=== PATIENT | female | born 1970 | race African-American/Black ===

== ENCOUNTER → 2017-04-01 | Outpatient (CLI) | payer BC ==
--- NOTE | 2017-04-01 15:53 | RAD ---
DATE: 04/01/2017 EXAM: DIGITAL SCREEN BILAT W/CAD HISTORY: Screening study. COMPARISON: 03/04/2016 This study was interpreted with the benefit of Computerized Aided Detection (CAD). The breast parenchyma is heterogeneously dense, which could reduce sensitivity of mammography. Breast parenchyma level C. FINDINGS: Digital MLO and CC mammograms of both breasts were obtained. Comparison study is dated 03/04/2016. The breast parenchyma is heterogeneously dense which can obscure a lesion on mammography. No spiculated mass is seen. No malignant appearing calcification or area of architectural distortion is noted. A 2 cm benign-appearing nodule is seen within the left breast, unchanged. Since the previous examination there has been no significant interval change. IMPRESSION: BI-RADS Category 2, benign finding. There is no mammographic evidence malignancy. Routine yearly screening mammography is recommended for follow-up. BI-RADS CATEGORY: 2 BENIGN FINDING(S) RECOMMENDED FOLLOW-UP: 12M 12 MONTH FOLLOW-UP PQRS compliance statement: Patient information was entered into a reminder system with a target due date 04/01/2018 for the next mammogram. Mammography is a sensitive method for finding small breast cancers, but it does not detect them all and is not a substitute for careful clinical examination. A negative mammogram does not negate a clinically suspicious finding and should not result in delay in biopsying a clinically suspicious abnormality. "Our facility is accredited by the [employer] Mammography Program."
== END | disposition home or self-care (01) ==
LOC: MAMMO 12:52
PROVIDERS: ATTEND Internal Medicine
DX: Z12.31 Encounter for screening mammogram for malignant neoplasm of breast (principal)
CPT/HCPCS: G0202; 77067

== ENCOUNTER → 2018-04-07 | Outpatient (CLI) | payer BC ==
--- NOTE | 2018-04-07 12:32 | RAD ---
DATE: 04/07/2018 EXAM: DIGITAL SCREEN BILAT W/CAD HISTORY: Routine screening COMPARISON: 04/01/2017, 02/15/2014 This study was interpreted with the benefit of Computerized Aided Detection (CAD). Breast Density: SCATTERED The breast parenchyma shows scattered fibroglandular densities. Breast parenchyma level B. FINDINGS: The 3.5 cm slightly lobulated nodule is again noted anteromedially in the left breast. This is unchanged since multiple previous studies. There is less prominent nodularity in other portions of both breasts which is also unchanged. No new or enlarging breast densities are seen. No suspicious microcalcifications are evident. IMPRESSION: Stable mammograms without evidence of malignancy. BI-RADS CATEGORY: 2 BENIGN FINDING(S) RECOMMENDED FOLLOW-UP: 12M 12 MONTH FOLLOW-UP PQRS compliance statement: Patient information was entered into a reminder system with a target due date for the next mammogram. Mammography is a sensitive method for finding small breast cancers, but it does not detect them all and is not a substitute for careful clinical examination. A negative mammogram does not negate a clinically suspicious finding and should not result in delay in biopsying a clinically suspicious abnormality. "Our facility is accredited by the [employer] Mammography Program."
== END | disposition home or self-care (01) ==
LOC: MAMMO 11:41
PROVIDERS: ATTEND Internal Medicine
DX: Z12.31 Encounter for screening mammogram for malignant neoplasm of breast (principal)
CPT/HCPCS: 77067

== ENCOUNTER → 2018-04-15 | Outpatient (CLI) | payer BC ==
--- NOTE | 2018-04-16 11:14 | RAD ---
INDICATION: 47 years year-old female presents for sonographic evaluation of a palpable abnormality within the left breast TECHNIQUE: Targeted high resolution sonography of the region of clinical concern was performed. COMPARISON: Prior mammography dating back to 01/28/2012 FINDINGS: Sonographic evaluation of the region of palpable abnormality was performed. A 3 x 1.3 x 1.6 cm hypoechoic oval mass is seen in a parallel orientation at the 11:00 position which correlates to the density seen on prior mammogram stable to at least 01/28/2012 IMPRESSION: No sonographic evidence of malignancy. RECOMMENDATION: The patient's focal breast complaint should be further managed clinically. Continued annual screening mammography is recommended with the next mammography due 04/07/2019 BI-RADS 2: Benign
== END | disposition home or self-care (01) ==
LOC: US 12:33
PROVIDERS: ATTEND Internal Medicine
DX: R92.8 Other abnormal and inconclusive findings on diagnostic imaging of breast (principal)
CPT/HCPCS: 76641

== ENCOUNTER → 2019-04-10 | Outpatient (CLI) | payer BC ==
--- NOTE | 2019-04-10 18:04 | RAD ---
DATE: 04/10/2019 EXAM: MAMMO STEVAN SCREENING BILATERAL HISTORY: Routine screening COMPARISON: 02/15/2014, 02/23/2015, 03/04/2016, 04/01/2017, 04/07/2018 This study was interpreted with the benefit of Computerized Aided Detection (CAD). Breast Density: SCATTERED The breast parenchyma shows scattered fibroglandular densities. Breast parenchyma level B. FINDINGS: Anterior left lower inner breast mass has remained stable. Small mass involving the right lower inner breast is also stable. No suspicious calcific lesion or distortion. No suspicious new mass. Small masses are best seen on tomosynthesis imaging measuring less than 0.5 cm. There are multiple bilaterally with no suspicious characteristics. These appears stable upon correlation with prior exams. IMPRESSION: Stable BI-RADS CATEGORY: 1 NEGATIVE RECOMMENDED FOLLOW-UP: 12M 12 MONTH FOLLOW-UP PQRS compliance statement: Patient information was entered into a reminder system with a target due date for the next mammogram. Mammography is a sensitive method for finding small breast cancers, but it does not detect them all and is not a substitute for careful clinical examination. A negative mammogram does not negate a clinically suspicious finding and should not result in delay in biopsying a clinically suspicious abnormality. "Our facility is accredited by the [employer] Mammography Program."
== END | disposition home or self-care (01) ==
LOC: MAMMO 07:21
PROVIDERS: ATTEND Internal Medicine
DX: Z12.31 Encounter for screening mammogram for malignant neoplasm of breast (principal); N63.20 Unspecified lump in the left breast, unspecified quadrant; N63.10 Unspecified lump in the right breast, unspecified quadrant
CPT/HCPCS: 77063; 77067

== ENCOUNTER → 2019-06-20 | Outpatient (CLI) | payer OTHER ==
--- NOTE | 2019-06-20 10:35 | RAD ---
PQRS Compliance Statement: One or more of the following individualized dose reduction techniques were utilized for this examination: 1. Automated exposure control 2. Adjustment of the mA and/or kV according to patient size 3. Use of iterative reconstruction technique CT HEAD WITHOUT CONTRAST History: Concussion. Comparison: None. Procedure: Axial images are obtained of the head from the skull base through the vertex without IV contrast. Findings: There are bilateral centrum semiovale hypodensities that are probably encephalomalacia. There is mild generalized cerebral atrophy. There is right temporal lobe encephalomalacia. There is inferior left temporal lobe encephalomalacia. No mass-effect, midline shift, hemorrhage, extra-axial fluid collection, or obvious acute infarction is identified. Basilar cisterns are patent. Bone windows demonstrate no acute calvarial abnormality. Small posterior left frontal calvarial defect. The visualized paranasal sinuses are clear. Mastoid air cells are well aerated. IMPRESSION: 1. No acute intracranial hemorrhage. 2. 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 3. Bilateral centrum semiovale hypodensities are probably encephalomalacia. Electronically signed by: Frankie Madison MD (06/20/2019 10:32 AM) [id number]
== END ==
LOC: CT 09:34
PROVIDERS: ATTEND Internal Medicine
DX: S06.0X0A Concussion without loss of consciousness, initial encounter (principal); G93.89 Other specified disorders of brain; G31.89 Other specified degenerative diseases of nervous system; X58.XXXA Exposure to other specified factors, initial encounter; Y93.89 Activity, other specified; Y92.89 Other specified places as the place of occurrence of the external cause; Y99.0 Civilian activity done for income or pay
CPT/HCPCS: 70450

== ENCOUNTER → 2019-06-30 | Outpatient (CLI) | payer BC, OTHER ==
--- NOTE | 2019-06-30 15:20 | RAD ---
Transabdominal and transvaginal sonography of the pelvis Clinical indications: Pelvic mass. Transabdominal sonography: The uterus is anteverted in position. The longitudinal and AP and transverse dimensions of the uterus are 11.9 cm and 6.0 cm and 6.7 cm respectively. The endometrial canal is poorly visualized. Therefore, transvaginal sonography will be performed. There is a large mass of the pelvis which appears be arising from the fundus of the uterus and measures 12.5 cm in greatest dimension. Neither ovary is visualized. No free fluid is evident. Transvaginal sonography: There is a posterior uterine mass measuring 4.6 cm in greatest dimension. The endometrial canal is not well defined. Therefore, measurement of the endometrial canal cannot be completed. As a result, the posterior uterine mass may represent a fibroid or endometrial mass. Small nabothian cysts are seen. Neither ovary can be visualized. No free fluid is seen within the cul-de-sac. Small amount of free fluid is seen superior to the uterus. IMPRESSION: Large central pelvic mass extending up to the level of the umbilicus which measures 12.5 cm in size and is contiguous with the fundus of the uterus. This could represent a large serosal or pedunculated uterine fibroid but other etiologies for pelvic mass need to be considered as well including ovarian or colon. Neither ovary is visualized. There is a 4.6 cm posterior uterine mass. Endometrial canal is not visualized and therefore is distorted by this mass. As a result, this mass could be a fibroid or endometrial mass. Electronically signed by: Luis Rodriguez MD (06/30/2019 3:17 PM) [facility]
== END | disposition home or self-care (01) ==
LOC: US 14:03
PROVIDERS: ATTEND Obstetrics & Gynecology
DX: N88.8 Other specified noninflammatory disorders of cervix uteri (principal); R19.00 Intra-abdominal and pelvic swelling, mass and lump, unspecified site
CPT/HCPCS: 76830; 76856

== ENCOUNTER 2019-08-23 07:30 | Inpatient (IN) | payer BC ==
[~2019-08-23] VITALS: Ht 152.4 cm; Wt 91.0 kg
[2019-08-25] MEDS ORDERED: MULT-245 PO (14:15)
[2019-08-25] MEDS ORDERED: BIMA2.5D EACHEYE (14:16)
[2019-08-30] VITALS (10 sets, daily range): BP systolic 80–111; BP diastolic 49–74
[2019-08-30] MEDS ORDERED: MORPHINE SULFATE 2 MG/ML VIAL. IV PRN (07:00)
[2019-08-30] MEDS ORDERED: IV RINGERS,LACTATED 1000ML 1,000 ML IV SCH (07:00)
[2019-08-30] MEDS ORDERED: PROCHLORPERAZINE 10 MG/2 ML VIAL. IV PRN (07:00)
[2019-08-30] MEDS ORDERED: ONDANSETRON PF 4 MG/2 ML VIAL. IV PRN (07:00)
[2019-08-30] MEDS ORDERED: fentaNYL PF VIAL 100 MCG/2 ML VIAL IV PRN ×2 (07:00)
[2019-08-30] MEDS ORDERED: HYDROmorphone 2 MG/ML VIAL IV PRN (07:00)
[2019-08-30] MEDS ORDERED: NEOSTIGMINE METHYLSULFATE 5 MG/5 ML SYRINGE. ONE (08:25)
[2019-08-30] MEDS ORDERED: GLYCOPYRROLATE 1 MG/5 ML VIAL. ONE (08:25)
[2019-08-30] MEDS ORDERED: PROPOFOL 10 MG/ML (20ML) VIAL. IV ONE (08:25)
[2019-08-30] MEDS ORDERED: SEVOFLURANE > 120 MINUTES. IH ONE (08:25)
[2019-08-30] MEDS ORDERED: fentaNYL PF VIAL 100 MCG/2 ML VIAL ONE ×3 (08:25→13:28)
[2019-08-30] MEDS ORDERED: MIDAZOLAM HCL/PF 2 MG/2 ML VIAL. ONE (08:25)
[2019-08-30] MEDS ORDERED: ROCURONIUM 50 MG/5 ML VIAL. ONE ×2 (08:25→12:21)
[2019-08-30] MEDS ORDERED: LIDOCAINE 2% PF 5 ML VIAL. ONE (08:25)
[2019-08-30] MEDS ORDERED: KETOROLAC 30 MG/ML VIAL. ONE (08:26)
[2019-08-30] MEDS ORDERED: DEXAMETHASONE SOD PHOS 4 MG/ML VIAL ONE (08:26)
[2019-08-30] MEDS ORDERED: ONDANSETRON PF 4 MG/2 ML VIAL. ONE (08:26)
[2019-08-30] MEDS ORDERED: SIMV10TA15 PO (08:31)
[2019-08-30] MEDS ORDERED: GELATIN SPONGE SIZE 100. ONE (08:54)
[2019-08-30] MEDS ORDERED: GELATIN SPONGE SIZE 12-7MM SPONGE. ONE (08:55)
--- NOTE | 2019-08-30 09:06 | EKG ---
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
--- NOTE | 2019-08-30 09:49 | RAD ---
Chest, PA and Lateral: Technique: PA and lateral views of the chest were obtained. History: Preop. Comparison: None. Findings: The heart and pulmonary vasculature appear within normal limits. The lungs are clear. The pleural margins are clear. Impression: No acute chest process is seen. Electronically signed by: Tim Mcodnnell MD (08/30/2019 9:46 AM) [id number]
[2019-08-30] MEDS ORDERED: PHENYLEPHRINE in 0.9% NACL PF 1 MG/10 ML SYRINGE. IV ONE ×2 (10:49→12:38)
[2019-08-30 11:04] LABS: BASO % 1 % (0-3); EOS # 0.1 x10^3/uL (0.0-0.7); EOS % 2 % (0-3); HEMATOCRIT 38.7 % (36.0-47.0); HEMOGLOBIN 12.6 g/dL (12.0-15.5); LYMPH # 1.4 x10^3/uL (1.0-4.8); LYMPH % 22 % (24-48); MEAN CORPUSCULAR HEMOGLOBIN 26 pg (25-35); MEAN CORPUSCULAR HGB CONC 33 g/dL (31-37); MEAN CORPUSCULAR VOLUME 79 fL (79-100); MONO # 0.4 x10^3/uL (0.0-1.1); MONO % 7 % (0-9); NEUT # 4.6 x10^3/uL (1.8-7.7); NEUT % 69 % (31-73); PLATELET COUNT 223 x10^3/uL (140-400); RED BLOOD COUNT 4.93 x10^6/uL (3.50-5.40); RED CELL DISTRIBUTION WIDTH 16.7 % (11.5-14.5); WHITE BLOOD COUNT 6.6 x10^3/uL (4.0-11.0)
[2019-08-30 12:35] LABS: BASO % 1 % (0-3); EOS # 0.1 x10^3/uL (0.0-0.7); EOS % 1 % (0-3); HEMATOCRIT 29.5 % (36.0-47.0); HEMOGLOBIN 9.8 g/dL (12.0-15.5); LYMPH # 1.5 x10^3/uL (1.0-4.8); LYMPH % 20 % (24-48); MEAN CORPUSCULAR HEMOGLOBIN 26 pg (25-35); MEAN CORPUSCULAR HGB CONC 33 g/dL (31-37); MEAN CORPUSCULAR VOLUME 79 fL (79-100); MONO # 0.3 x10^3/uL (0.0-1.1); MONO % 4 % (0-9); NEUT # 5.5 x10^3/uL (1.8-7.7); NEUT % 75 % (31-73); PLATELET COUNT 206 x10^3/uL (140-400); RED BLOOD COUNT 3.76 x10^6/uL (3.50-5.40); RED CELL DISTRIBUTION WIDTH 16.5 % (11.5-14.5); WHITE BLOOD COUNT 7.3 x10^3/uL (4.0-11.0)
[2019-08-30] MEDS ORDERED: ePHEDrine PF IN SALINE 50 MG/10 ML SYRINGE. IV ONE (13:10)
--- NOTE | 2019-08-30 13:36 | PDOC ---
GENERAL General: 49yrs old lady admitted for Pelvic Pain and Large size Uterus with Fibroids. VITAL SIGNS Vital Signs/I&O: Vital Signs Date Time Temp Pulse Resp B/P (MAP) Pulse Ox O2 Delivery O2 Flow Rate FiO2 08/30/19 08:32 97.4 95 20 97 97.4 08/30/19 08:16 126/62 Room Air ALLERGIES Allergies: Allergies Coded Allergies Type Severity Reaction Last Updated Verified No Known Drug Allergies 08/30/19 No MEDS Medications: Current Medications Medications (Trade) Dose Ordered Sig/Gil Route PRN Reason Start Time Stop Time Status Last Admin Dose Admin Ringer's Solution 1,000 ml @ 30 mls/hr Q24H IV 08/30/19 07:00 08/30/19 18:59 08/30/19 09:11 Cefazolin Sodium/ Dextrose 50 ml @ 100 mls/hr 1X PREOP PRN IV PRIOR TO PROCEDURE 08/30/19 06:00 08/30/19 18:00 08/30/19 10:30 Gelatin (Gelfoam Size 12-7mm) 1 each STK-MED ONCE .ROUTE 08/30/19 08:55 08/30/19 08:55 DC 08/30/19 12:46 LAB Lab: Laboratory Tests Test 08/30/19 08:19 08/30/19 08:30 08/30/19 12:27 POC Urine HCG, Qualitative Hcg negative (Negative) White Blood Count 6.6 x10^3/uL (4.0-11.0) 7.3 x10^3/uL (4.0-11.0) Red Blood Count 4.93 x10^6/uL (3.50-5.40) 3.76 x10^6/uL (3.50-5.40) Hemoglobin 12.6 g/dL (12.0-15.5) 9.8 g/dL (12.0-15.5) L Hematocrit 38.7 % (36.0-47.0) 29.5 % (36.0-47.0) L Mean Corpuscular Volume 79 fL (79-100) 79 fL (79-100) Mean Corpuscular Hemoglobin 26 pg (25-35) 26 pg (25-35) Mean Corpuscular Hemoglobin Concent 33 g/dL (31-37) 33 g/dL (31-37) Red Cell Distribution Width 16.7 % (11.5-14.5) H 16.5 % (11.5-14.5) H Platelet Count 223 x10^3/uL (140-400) 206 x10^3/uL (140-400) Neutrophils (%) (Auto) 69 % (31-73) 75 % (31-73) H Lymphocytes (%) (Auto) 22 % (24-48) L 20 % (24-48) L Monocytes (%) (Auto) 7 % (0-9) 4 % (0-9) Eosinophils (%) (Auto) 2 % (0-3) 1 % (0-3) Basophils (%) (Auto) 1 % (0-3) 1 % (0-3) Neutrophils # (Auto) 4.6 x10^3/uL (1.8-7.7) 5.5 x10^3/uL (1.8-7.7) Lymphocytes # (Auto) 1.4 x10^3/uL (1.0-4.8) 1.5 x10^3/uL (1.0-4.8) Monocytes # (Auto) 0.4 x10^3/uL (0.0-1.1) 0.3 x10^3/uL (0.0-1.1) Eosinophils # (Auto) 0.1 x10^3/uL (0.0-0.7) 0.1 x10^3/uL (0.0-0.7) Basophils # (Auto) 0.0 x10^3/uL (0.0-0.2) 0.0 x10^3/uL (0.0-0.2) Laboratory Tests 08/30/19 08:30 08/30/19 12:27 ASSESSMENT & PLAN A&P Under GA Myomectomy and Abdominal Hysterectomy done. EBL 1600cc. Mutiple Myoma removed. SERGIO MIRANDA MD August 30, 2019 13:36
[2019-08-30] MEDS ORDERED: ACETAMINOPHEN 325 MG TABLET. PO PRN (13:45)
[2019-08-30] MEDS ORDERED: oxyCODONE/APAP 5/325 1 TAB TABLET PO ONE (13:45)
[2019-08-30] MEDS ORDERED: ZOLPIDEM 5 MG TABLET. PO PRN (13:45)
[2019-08-30] MEDS ORDERED: 0.9 % SOD CHL for STERILE FIELD 10 ML DISP.SYRIN. IV ONE (13:45)
[2019-08-30] MEDS ORDERED: ONDANSETRON ODT 4 MG TAB.RAPDIS. PO PRN (13:45)
[2019-08-30 13:51] LABS: RED BLOOD COUNT 2.36 x10^6/uL (3.50-5.40); RED CELL DISTRIBUTION WIDTH 16.4 % (11.5-14.5); WHITE BLOOD COUNT 7.9 x10^3/uL (4.0-11.0)
[2019-08-30 13:57] LABS: HEMATOCRIT 19.1 % (36.0-47.0); HEMOGLOBIN 6.2 g/dL (12.0-15.5)
--- NOTE | 2019-08-30 14:45 | OP ---
DATE OF SURGERY: PREOPERATIVE DIAGNOSES: Pelvic pain, large fibroid uterus. POSTOPERATIVE DIAGNOSES: Pain with multiple leiomyoma of the uterus. OPERATION PERFORMED: Myomectomy, abdominal hysterectomy. DESCRIPTION OF PROCEDURE: The patient was taken to the operating room under general anesthesia. She was placed in a dorsal supine position. Taylor catheter introduced in a bladder for continuous bladder drainage. Lower abdomen was prepped and draped in the usual manner. A midline vertical incision is made because of the large size of the uterus and fibroids. Abdomen opened in layers. Visualization of pelvic structures revealed enlarged uterus. Both the ovaries appeared normal, also the tubes. The lower abdomen, is entirely occupied by a pedunculated fibroid coming from the uterus extending as far as the upper abdominal area and this could not be delivered in one piece because of the large size of the myoma hence myomectomy was performed first to debulk the size of the tumor and then the fibroid is excised on the back side of the uterus and subjected for pathological examination. The uterus enlarged also occupied by myomas in the fundus of the uterus. The round ligament on either side is clamped, ligated, cut, and sutured with #1 chromic catgut sutures and the broad ligament on either side is clamped, ligated, cut, and sutured with #1 chromic catgut sutures. After this, the bladder flap peritoneum was dissected. Bladder was pushed way down the lower segment of the uterus and the uterine vessels on either side is clamped, ligated, cut, and sutured with 0 chromic catgut sutures. After the complete reflection of bladder flap peritoneum, a stab wound incision was made below the cervix posteriorly and the uterosacral cardinal ligaments on either side is ligated, cut, and sutured with 0 chromic catgut sutures. The incision below the cervix is extended on either side all around below the cervix. Thus, the uterus with the cervix was removed and subjected for pathological examination and the cut edges of vaginal mucous membrane is brought together midline, sutured together using [id number] continuous 0 chromic catgut sutures. The angle of the vagina is anchored to the uterosacral cardinal ligaments on either side using [id number] 0 chromic catgut sutures. A small piece of Gelfoam sponge is placed below the bladder flap peritoneum. Reperitonealization was done with 0 chromic sutures. After this, there was small amount of oozing and this was controlled by putting Interceed in the pelvic area. After this abdomen closed in layers using continuous 0 chromic catgut sutures for the peritoneum, the muscle, the fascia. 3-0 plain subcutaneous sutures were placed and 3-0 Vicryl subcutaneous sutures were placed and pressure dressing is given. The patient sent to the recovery room in good condition. No complications encountered at time of the procedure. Estimated blood loss about is 1600 mL. Urine was clear at the end of the surgery. All the specimen sent to the lab for pathological examination. Her hemoglobin will be checked in the recovery room and if needed blood transfusion will be given later. SERGIO MIRANDA MD DR: MITCH/lucero JOB#: [id number] / [id number]
--- NOTE | 2019-08-30 15:30 | NUR ---
Pt admitted to room 339 per bed from PACU S/P open hysterectomy. Pt alert and oriented to room and POC. Pt has the 1st unit of PRBCs infusing without a punp due to the blood tubing that was used in Pacu is not compatible with the pumps on the floor. Pt has a large abd dressing to the lower part of her abdomen that is dry and intact. No bleeding noted from the vagina at this time. Will monitor and support and infused a 2nd unit of PRBCs after this unit is complete.
[2019-08-30] MEDS: IV DEXTROSE 5%-LACT RINGERS 1,000 ML IV SCH (20:11)
[2019-08-30 20:51] LABS: HEMOGLOBIN 11.2 g/dL (12.0-15.5); RED BLOOD COUNT 4.18 x10^6/uL (3.50-5.40); RED CELL DISTRIBUTION WIDTH 16.5 % (11.5-14.5); WHITE BLOOD COUNT 12.7 x10^3/uL (4.0-11.0)
[2019-08-31 02:02] VITALS: BP 97/57
[2019-08-31] MEDS: IV DEXTROSE 5%-LACT RINGERS 1,000 ML IV SCH (04:39)
[2019-08-31] MEDS: oxyCODONE/APAP 5/325 1 TAB TABLET PO PRN ×2 (06:10→13:13)
[2019-08-31 06:18] VITALS: BP 87/53
--- NOTE | 2019-08-31 09:03 | PDOC ---
GENERAL General: Explained to patient about surgery. No fever. Patient feeling good. VITAL SIGNS Vital Signs/I&O: Vital Signs Date Time Temp Pulse Resp B/P (MAP) Pulse Ox O2 Delivery O2 Flow Rate FiO2 08/31/19 06:18 98.4 82 20 87/53 (64) 98 Room Air 98.4 I & O 08/30/19 08/30/19 08/31/19 15:00 23:00 07:00 Intake Total 2550 ml 1260 ml Output Total 1765 ml 200 ml 525 ml Balance 785 ml 1060 ml -525 ml ALLERGIES Allergies: Allergies Coded Allergies Type Severity Reaction Last Updated Verified No Known Drug Allergies 08/30/19 No MEDS Medications: Current Medications Medications (Trade) Dose Ordered Sig/Gil Route PRN Reason Start Time Stop Time Status Last Admin Dose Admin Oxycodone/ Acetaminophen (Percocet 5/325) 2 tab 1X ONCE PO 08/30/19 13:45 08/30/19 14:04 DC 08/30/19 19:55 Oxycodone/ Acetaminophen (Percocet 5/325) 2 tab PRN Q6HRS PRN PO PAIN 08/30/19 19:45 08/31/19 06:10 Dextrose/Lactated Ringer's 1,000 ml @ 125 mls/hr Q8H IV 08/30/19 20:00 08/31/19 04:39 LAB Lab: Laboratory Tests Test 08/30/19 12:27 08/30/19 13:45 08/30/19 20:40 White Blood Count 7.3 x10^3/uL (4.0-11.0) 7.9 x10^3/uL (4.0-11.0) 12.7 x10^3/uL (4.0-11.0) H Red Blood Count 3.76 x10^6/uL (3.50-5.40) 2.36 x10^6/uL (3.50-5.40) L 4.18 x10^6/uL (3.50-5.40) Hemoglobin 9.8 g/dL (12.0-15.5) L 6.2 g/dL (12.0-15.5) 11.2 g/dL (12.0-15.5) #L Hematocrit 29.5 % (36.0-47.0) L 19.1 % (36.0-47.0) *L 34.0 % (36.0-47.0) L Mean Corpuscular Volume 79 fL (79-100) 81 fL (79-100) 81 fL (79-100) Mean Corpuscular Hemoglobin 26 pg (25-35) 26 pg (25-35) 27 pg (25-35) Mean Corpuscular Hemoglobin Concent 33 g/dL (31-37) 32 g/dL (31-37) 33 g/dL (31-37) Red Cell Distribution Width 16.5 % (11.5-14.5) H 16.4 % (11.5-14.5) H 16.5 % (11.5-14.5) H Platelet Count 206 x10^3/uL (140-400) 146 x10^3/uL (140-400) 195 x10^3/uL (140-400) Neutrophils (%) (Auto) 75 % (31-73) H Lymphocytes (%) (Auto) 20 % (24-48) L Monocytes (%) (Auto) 4 % (0-9) Eosinophils (%) (Auto) 1 % (0-3) Basophils (%) (Auto) 1 % (0-3) Neutrophils # (Auto) 5.5 x10^3/uL (1.8-7.7) Lymphocytes # (Auto) 1.5 x10^3/uL (1.0-4.8) Monocytes # (Auto) 0.3 x10^3/uL (0.0-1.1) Eosinophils # (Auto) 0.1 x10^3/uL (0.0-0.7) Basophils # (Auto) 0.0 x10^3/uL (0.0-0.2) Laboratory Tests 08/30/19 12:27 08/30/19 13:45 08/30/19 20:40 ASSESSMENT & PLAN A&P Abdomen soft. Urine Clear. Vital signs stable. Will increase diet today. SERGIO MIRANDA MD August 31, 2019 09:03
[2019-08-31 12:15] VITALS: BP 95/56
[2019-08-31 20:28] VITALS: BP 93/52
[2019-09-01] MEDS: oxyCODONE/APAP 5/325 1 TAB TABLET PO PRN ×3 (01:09→19:24)
[2019-09-01 01:12] VITALS: BP 100/64
[2019-09-01 05:35] VITALS: BP 123/70
--- NOTE | 2019-09-01 09:20 | PDOC ---
GENERAL General: Patient sitting in the Chair. Feeling good. VITAL SIGNS Vital Signs/I&O: Vital Signs Date Time Temp Pulse Resp B/P (MAP) Pulse Ox O2 Delivery O2 Flow Rate FiO2 09/01/19 05:35 97.8 79 18 123/70 (87) 99 Room Air 97.8 I & O 08/31/19 08/31/19 09/01/19 15:00 23:00 07:00 Intake Total 1000 ml 200 ml Output Total 550 ml 300 ml 400 ml Balance 450 ml -300 ml -200 ml ALLERGIES Allergies: Allergies Coded Allergies Type Severity Reaction Last Updated Verified No Known Drug Allergies 08/30/19 No ASSESSMENT & PLAN A&P Vital signs stable. Abdomen soft. No Problems. Will Dismiss Patient tomorrow AM. SERGIO MIRANDA MD September 01, 2019 09:20
[2019-09-01 10:35] VITALS: BP 119/76
[2019-09-01 10:50] VITALS: BP 117/78
--- NOTE | 2019-09-01 15:07 | PATHOLOGY ---
[facility] Accession Number: [id number] . 01 Material submitted: . uterus - UTERUS AND FIBROIDS . 01 Clinical history: . Fibroid uterus . 02 Diagnosis: "Uterus with fibroid, hysterectomy": - Endocervix with moderate chronic endocervicitis and Nabothian cysts. - Disordered proliferative phase endometrium without hyperplasia or malignancy. - Adenomyoses. - Multiple fragments of leiomyomas focally cellular without any significant atypia or necrosis or evidence of malignancy. . (SHA:preeti; 09/01/2019) [facility] 09/01/2019 1206 Local . 02 Electronically signed: . Jun Reyes MD, Pathologist NPI- [id number] . 01 Gross description: . The specimen is received in formalin, labeled "Marisa Mika, uterus and fibroids". Received is a 132 g, 8.3 x 6.7 x 4.8 cm uterine corpus with attached lower uterine segment. The uterine serosa is pale kenyon and smooth in appearance with a large area of disruption at the fundus which has sutures present, measuring 5.7 cm. The uterus cannot be oriented. The specimen is opened laterally to reveal a pale kenyon, slightly corrugated to cystic endocervical canal measuring 1.6 cm in length. The endometrial cavity is trying measuring 5.1 cm in length by 2.6 cm in width. The endometrium is pink-kenyon, glistening in appearance and measures 0.1 cm in thickness. Serial sectioning reveals a kenyon-pink, trabeculated myometrium measuring up to 3.0 cm in thickness displaying three intramural fibroids ranging in size from 0.8 to 2.2 cm in maximum dimensions. . Also received within the specimen container is a 19.2 x 18.8 x 10.9 cm aggregate of white-kenyon fibroid tissue, with an aggregate weight of 977 g. [place]-kenyon, smooth serosa is identified on several of the segments. Sectioning reveals pink-kenyon to white-kenyon, whorled to trabeculated cut surfaces. There is an area of degeneration noted measuring approximately 2.5 cm within one fibroid. The specimen is submitted representatively as follows: . A1-A2 endocervical sections A3-A4 endomyometrium and opposite endomyometrium A5 [employer] sections of fibroids from uterine corpus A6-A9 [employer] sections of separately submitted fibroid tissue. (CAA; 08/31/2019) [facility] 09/01/2019 1446 Local . 02 Pathologist provided ICD-10: N72, N88.8, N85.9, N80.0, D25.9 . 02 CPT . 181634 Specimen Comment: A courtesy copy of this report has been sent to [phone], [phone] Specimen Comment: [id number] Specimen Comment: Report sent to / DR RODRIGUEZ Performed at: 01 [facility] [address] [facility] [address], [place] [id number] MD Khari Harden MD Phone: [phone] Performed at: 02 [facility] [address] [place], [place] [id number] MD Taye Ceron MD Phone: [phone]
--- NOTE | 2019-09-01 16:03 | NUR ---
Patient still needing minimal assistance to bathroom and chair due to unsteadiness. Patient began receiving incisional care and home instructions today, but reinforcement of education is needed. Patient requiring reminders throughout the day regarding care. Patient started on regular diet this morning, will continue to monitor. Patient to be discharged tomorrow.
[2019-09-01 18:29] VITALS: BP 97/63
[2019-09-01 20:04] VITALS: BP 109/68
[2019-09-02] MEDS: oxyCODONE/APAP 5/325 1 TAB TABLET PO PRN (03:07)
[2019-09-02 03:41] VITALS: BP 118/72
[2019-09-02 08:10] VITALS: BP 115/71
--- NOTE | 2019-09-02 10:12 | PDOC ---
GENERAL General: Patient doing ok. Likes to go home. VITAL SIGNS Vital Signs/I&O: Vital Signs Date Time Temp Pulse Resp B/P (MAP) Pulse Ox O2 Delivery O2 Flow Rate FiO2 09/02/19 08:10 98.4 93 18 115/71 (86) 98 Room Air 98.4 I & O 09/01/19 09/01/19 09/02/19 15:00 23:00 07:00 Output Total 750 ml 350 ml Balance -750 ml -350 ml ALLERGIES Allergies: Allergies Coded Allergies Type Severity Reaction Last Updated Verified No Known Drug Allergies 08/30/19 No ASSESSMENT & PLAN A&P Abdomen soft. Incision healing well. Patient to go home today. Will see her in 2 weeks in office.. SERGIO MIRANDA MD September 02, 2019 10:12
== END 2019-09-02 13:23 | disposition home or self-care (01) | DRG 743 ==
LOC: OPSVCIP 08-30 07:56 → 3 NORTH 08-30 15:30
PROVIDERS: ADMIT Obstetrics & Gynecology; ATTEND Obstetrics & Gynecology
PROC: 30233N1 Transfusion of Nonautologous Red Blood Cells into Peripheral Vein, Percutaneous Approach (ICD-10-PCS; 2019-08-30)
PROC: 0UT90ZZ Resection of Uterus, Open Approach (ICD-10-PCS; principal; 2019-08-30 10:00)
DX: D25.9 Leiomyoma of uterus, unspecified (principal); Z90.710 Acquired absence of both cervix and uterus; Z79.899 Other long term (current) drug therapy
CPT/HCPCS: 36415; 71046; 81025; 85025; 85027; 86850; 86900; 86901; 86920; 93005; A7015; J0696; J1100; J1885; J2250; J2370; J2405; J2704; J2710; J3010; J3490; J7120; J7121; P9016; A4461; G0378

== ENCOUNTER → 2019-08-25 | Outpatient (CLI) | payer BC, OTHER ==
[~2019-08-25] MED LIST: BIMA2.5D EACHEYE; MULT-245 PO; SIMV10TA15 PO
--- NOTE | 2019-08-29 17:43 | HP ---
ADMIT DATE: CHIEF COMPLAINT AND HISTORY OF PRESENT ILLNESS: This patient is a 49-year-old Palestinian lady who is a 1, para 1, has a history of irregular menstrual periods. She is a patient of Dr. Noé Alejandra referred for Pap smear as well as pelvic pain and discomfort and she was seen in the office and during the time of the pelvic exam and a Pap smear process, it was noticed her uterus was very large size around 20 weeks' size and so the patient is admitted to the hospital at this time for abdominal hysterectomy and possible bilateral salpingo-oophorectomy. ALLERGIES: None known. 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 PHYSICAL EXAMINATION: ABDOMEN: Feels soft. PELVIC: Shows external genitalia being normal. Cervical os is closed and uterus is large as mentioned above around 20 weeks' size, very firm in consistency. No adnexal masses are palpable. Some discomfort in the lower abdomen noted. A Pap smear done in the office has remained normal. IMPRESSION: Abdominal pain and pelvic pain, fibroid uterus, rule out cancer of the uterus. PLAN: Admission to the hospital and abdominal hysterectomy, bilateral salpingo-oophorectomy. The details of the surgery, the risks and complications including any injury to the bladder or bowel has been explained to her and the patient is willing for the operation at the present time. SERGIO MIRANDA MD DR: MITCH/lucero JOB#: [id number] / [id number]
== END | disposition home or self-care (01) ==
LOC: SURGPAT 13:55
PROVIDERS: ATTEND Obstetrics & Gynecology
DX: Z01.812 Encounter for preprocedural laboratory examination (principal); Z11.59 Encounter for screening for other viral diseases; R10.2 Pelvic and perineal pain
CPT/HCPCS: 36415; 87635

== ENCOUNTER → 2020-04-02 | Outpatient (CLI) | payer BC ==
--- NOTE | 2020-04-03 14:17 | RAD ---
DATE: 04/02/2020 2:25 PM EXAM: DIGITAL SCREEN BILAT W/CAD HISTORY: Screening COMPARISON: 04/10/2019, 04/07/2018 mammograms, and left breast ultrasound of 04/15/2018 Bilateral CC and MLO views of the breasts were performed. Bilateral breast tomosynthesis was performed in CC and MLO projections. This study was interpreted with the benefit of Computerized Aided Detection (CAD). FINDINGS: Breast Density: FATTY The Breast Parenchyma is primarily fatty replaced. Breast parenchyma level density A. Stable benign nodularity to both breasts, largest measuring 3 cm in the subareolar left breast No suspicious masses, microcalcifications or architectural distortion is present to suggest malignancy in either breast. The visualized axillae are unremarkable. IMPRESSION: No mammographic evidence of malignancy. BI-RADS CATEGORY: 2 BENIGN FINDING(S) RECOMMENDED FOLLOW-UP: 12M 12 MONTH FOLLOW-UP Annual screening mammography is recommended, unless clinically indicated sooner based on symptoms or change in physical exam. PQRS compliance statement: Patient information was entered into a reminder system with a target due date for the next mammogram. Mammography is a sensitive method for finding small breast cancers, but it does not detect them all and is not a substitute for careful clinical examination. A negative mammogram does not negate a clinically suspicious finding and should not result in delay in biopsying a clinically suspicious abnormality. "Our facility is accredited by the [employer] Mammography [employer]."
== END ==
LOC: MAMMO 14:14
PROVIDERS: ATTEND Internal Medicine
DX: Z12.31 Encounter for screening mammogram for malignant neoplasm of breast (principal)
CPT/HCPCS: 77067

== ENCOUNTER → 2021-04-07 | Outpatient (CLI) | payer BC ==
--- NOTE | 2021-04-07 13:58 | RAD ---
DATE: 04/07/2021 EXAM: MG BILAT SCREEN+STEVAN HISTORY: Screening COMPARISON: 04/02/2020, 04/10/2019, 03/04/2016 This study was interpreted with the benefit of Computerized Aided Detection (CAD). Breast Density: SCATTERED The breast parenchyma shows scattered fibroglandular densities. Breast pare nchyma level B. FINDINGS: A 3.3 cm circumscribed mass in the retroareolar left breast at 10:00 is stable from multipl e prior exams. Bilateral intramammary lymph nodes are unchanged. No suspicious mass, suspicious calci fications, architectural distortion. IMPRESSION: Stable bilateral mammogram with no imaging evidence of malignancy. BI-RADS CATEGORY: 2 BENIGN FINDING(S) RECOMMENDED FOLLOW-UP: 12M 12 MONTH FOLLOW-UP PQRS compliance statement: Patient information was entered into a reminder system with a target due d ate for the next mammogram. Mammography is a sensitive method for finding small breast cancers, but it does not detect them all a nd is not a substitute for careful clinical examination. A negative mammogram does not negate a clin ically suspicious finding and should not result in delay in biopsying a clinically suspicious abnorma lity. "Our facility is accredited by the [employer] Mammography [employer]." Electronically signed by: Millie Mathew MD (04/07/2021 1:56 PM) [id number]
== END ==
LOC: MAMMO 09:39
PROVIDERS: ATTEND Internal Medicine
DX: Z12.31 Encounter for screening mammogram for malignant neoplasm of breast (principal)
CPT/HCPCS: 77063; 77067